=== PATIENT | male | born 1980 | race Two or more races ===

== ENCOUNTER 2016-12-27 17:56 | Emergency (ER) | payer MEDICAID, OTHER ==
[~2016-12-27] VITALS: Ht 182.9 cm; Wt 97.5 kg
[2016-12-27 18:48] LABS: Basophils # (auto) 0 uL; Basophils % (auto) 0.3 % (0.0-2.0); DEFINITIVE VIEW TRANSMISSION; Eosinophils # (auto) 0 uL; Eosinophils % (auto) 0.4 % (0.0-7.0); Hematocrit 47.5 % (41.0-53.0); Hemoglobin 15.5 g/dL (13.5-17.5); Lymphocytes # (auto) 1.9 uL; Lymphocytes % (auto) 17.2 % (10.0-50.0); Mean Corpuscular Hemoglobin 25.2 pg (28.0-32.0); Mean Corpuscular Hgb Conc. 32.7 g/dL (32.0-36.0); Mean Corpuscular Volume 77.2 fL (80.0-100.0); Mean Platelet Volume 7.5 fL (7.4-10.4); Monocytes # (auto) 0.4 uL; Monocytes % (auto) 3.4 % (0.0-12.0); Neutrophils # (auto) 8.9 uL; Neutrophils % (auto) 78.7 % (37.0-80.0); Platelet Count (auto) 389 10^3/uL (140-450); Red Cell Distribution Width 19.5 % (11.6-16.0); White Blood Cell 11.3 10^3/uL (4.4-10.8)
[2016-12-27 19:18] LABS: Anisocytosis Slight
[2016-12-27 19:19] LABS: Hypochromia Slight; Large Platelets FEW
[2016-12-27 19:20] LABS: Platelet Estimate Adequa
[2016-12-27 19:24] LABS: Albumin 3.4 g/dL (3.4-5.0); Calcium 9.9 mg/dL (8.5-10.1); Potassium 3.6 mmol/L (3.5-5.1)
[2016-12-27 19:34] LABS: Bilirubin, Total 0.4 mg/dL (0.2-1.0); Total Protein 9.4 g/dL (6.4-8.2)
[2016-12-27] MEDS ORDERED: LEVETIRACETAM 500 MG TAB PO ONE (20:00)
[2016-12-27] MEDS ORDERED: LORazepam 0.5 MG TAB PO ONE (20:00)
[2016-12-27 22:45] VITALS: BP 156/88
== END 2016-12-27 23:11 | disposition home or self-care (01) ==
LOC: ER 17:56
DX: G40.909 Epilepsy, unspecified, not intractable, without status epilepticus (principal); F11.20 Opioid dependence, uncomplicated; F12.10 Cannabis abuse, uncomplicated; Z91.14 Patient's other noncompliance with medication regimen; E11.9 Type 2 diabetes mellitus without complications
CPT/HCPCS: 36415; 70450; 80053; 82542; 85025; 94761